=== PATIENT | male | born 1970 | race Caucasian/White ===

== ENCOUNTER 2018-10-22 14:58 | Emergency (ER) | payer OTHER ==
[2018-10-22 15:02] VITALS: BMI 23.1
[2018-10-22 15:05] VITALS: BP 149/84; PULSE 76; RESP 18; TEMP 97.7; O2SAT 98
[2018-10-22] MEDS ORDERED: Bacitracin 500 Units/gm Oint Foilpak UD ONE (15:40)
--- NOTE | 2018-10-22 15:43 | C.PDOC ---
History Of Present Illness 47 y/o male comes in to ED for evaluation of a scratch at his lower leg. 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 Patient is unsure if the dog bit or scratched him. I spoke with the dog day care attendant on the phone who states that all shots are up to date. Charge Nurse reports that the dog is not a biter but does get excited and jumps at people at the door. Patient denies any fever, chills, or other complaints. Time Seen by Provider: 10/22/18 15:13 Chief Complaint (Nursing): Abnormal Skin Integrity History Per: Patient History/Exam Limitations: no limitations Onset/Duration Of Symptoms: Hrs Current Symptoms Are (Timing): Still Present Past Medical History Reviewed: Historical Data, Nursing Documentation, Vital Signs Vital Signs: Last Vital Signs Temp 97.7 F 10/22/18 15:02 Pulse 76 10/22/18 15:02 Resp 18 10/22/18 15:02 BP 149/84 10/22/18 15:02 Pulse Ox 98 10/22/18 15:02 Family History: States: No Known Family Hx - Social History Hx Alcohol Use: No Hx Substance Use: No - Immunization History Hx Tetanus Toxoid Vaccination: No Hx Influenza Vaccination: No Hx Pneumococcal Vaccination: No Review Of Systems Except As Marked, All Systems Reviewed And Found Negative. Constitutional: Negative for: Fever, Chills Cardiovascular: Negative for: Chest Pain Respiratory: Negative for: Cough, Shortness of Breath Gastrointestinal: Negative for: Nausea, Vomiting Musculoskeletal: Negative for: Neck Pain Skin: Positive for: Other (Scratch on lower leg). Negative for: Rash Physical Exam - Physical Exam Appears: Non-toxic, No Acute Distress Skin: Warm, Dry, Other (small abrasion on mid calf, no active bleeding at this time) Head: Atraumatic, Normacephalic Eye(s): bilateral: Normal Inspection Oral Mucosa: Moist Neck: Supple Cardiovascular: Rhythm Regular, No Murmur Respiratory: Normal Breath Sounds, No Rales, No Rhonchi, No Wheezing Extremity: No Pedal Edema, No Deformity, No Swelling Extremity: Bilateral: Normal Color And Temperature, Normal ROM Neurological/Psych: Oriented x3, Normal Speech Gait: Steady ED Course And Treatment O2 Sat by Pulse Oximetry: 98 (RA) Pulse Ox Interpretation: Normal Medical Decision Making Medical Decision Making: Area was cleaned and bandage was applied. Patient will be discharged home with Augmentin. Disposition Counseled Patient/Family Regarding: Diagnosis - Disposition Disposition: HOME/ ROUTINE Disposition Time: 15:41 Condition: STABLE Prescriptions: Amoxicillin/Clavulanate [Augmentin 875 MG-125 MG] 1 tab PO BID #14 tab Instructions: Animal Bites (DC) Forms: [facility] (Albanian), General Discharge Instructions - POA Present On Arrival: None - Clinical Impression Clinical Impression: Abrasion hip/leg - Scribe Statement The provider has reviewed the documentation as recorded by the Elyssa Ramirez Provider Attestation: All medical record entries made by the Elyssa were at my direction and personally dictated by me. I have reviewed the chart and agree that the record accurately reflects my personal performance of the history, physical exam, medical decision making, and the department course for this patient. I have also personally directed, reviewed, and agree with the discharge instructions and disposition.
== END 2018-10-22 15:58 | disposition home or self-care (01) ==
LOC: C.ER 14:58
DX: S80.819A Abrasion, unspecified lower leg, initial encounter (principal); X58.XXXA Exposure to other specified factors, initial encounter